=== PATIENT | male | born 1945 | race Caucasian/White ===

== ENCOUNTER 2022-03-17 07:45 | Inpatient (IN) | payer OTHER ==
[~2022-03-17] VITALS: Ht 177.8 cm; Wt 73.5 kg
[2022-03-17 08:05] VITALS: BP_SYST 147
[2022-03-17] MEDS ORDERED: METOCLOPRAMIDE HCL 10 MG/2 ML VIAL IVP ONE (08:45)
[2022-03-17] MEDS ORDERED: MECLIZINE HCL 25 MG TABLET (ANITVERT) PO ONE (08:45)
[2022-03-17 09:24] LABS: BASOPHILS % (AUTO) 0.9 % (0.0-2.0); EOSINOPHILS % (AUTO) 0.1 % (0.0-4.0); LYMPHOCYTES # (AUTO) 0.3 K/uL (1.0-5.5); LYMPHOCYTES % (AUTO) 9.9 % (20.5-51.5); MEAN CORPUSCULAR HEMOGLOBIN 33 pg (27-31); MEAN CORPUSCULAR HGB CONC 35 % (32-36); MEAN CORPUSCULAR VOLUME 93 fL (79.0-98.0); MONOCYTES # (AUTO) 0.4 K/uL (0.0-1.0); MONOCYTES % (AUTO) 10.7 % (1.7-9.3); NEUTROPHILS # (AUTO) 2.8 K/uL (1.8-7.7); NEUTROPHILS % (AUTO) 78.4 % (40.0-70.0); PLATELET COUNT (AUTO) 205 K/uL (130-430); RED BLOOD CELL COUNT(AUTO) 3.98 MIL/uL (4.2-6.2); RED CELL DISTRIBUTION WIDTH 12.7 % (9.0-15.0); WHITE BLOOD COUNT (AUTO) 3.5 K/uL (4.8-10.8)
[2022-03-17 10:05] LABS: ANION GAP 6 (5-15); CALCIUM 8.5 mg/dL (8.4-11.0); CREATININE 0.83 mg/dL (0.55-1.30); GLUCOSE 113 mg/dL (70-99); POTASSIUM 4.2 mmol/L (3.5-5.1); UREA NITROGEN, BLOOD 7 mg/dL (8-21)
[2022-03-17 10:14] LABS: ALANINE AMINOTRANSFERASE 25 U/L (12-78); ALBUMIN 3.7 g/dL (3.4-4.8); ASPARTATE AMINOTRANSFERASE 21 U/L (10-37); TOTAL BILIRUBIN 0.8 mg/dL (0.0-1.0)
[2022-03-17 10:15] LABS: CHLORIDE 82 mmol/L (98-107); SODIUM SERUM 113 mmol/L (136-145)
[2022-03-17] MEDS ORDERED: NACL 0.9% 1,000 ML IV ONE (10:15)
--- NOTE | 2022-03-17 10:20 | NUR ---
Patient to ER bed 4 to gown for evaluation. Side rails up. Report given to JAVON BOSS.
--- NOTE | 2022-03-17 12:11 | NUR ---
PT RESTING COMFORTABLY. NO DISTRESS NOTED. IVF COMPLETED. RESP EVEN AND UNLABORED. NO N/V NOTED. VSS. DENIES ANY NEEDS. AWAITING RE EVAL, WILL CONT TO MONITOR
--- NOTE | 2022-03-17 14:35 | NUR ---
PT RESTING COMFORTABLY. NO DISTRESS NOTED. RESP EVEN AND UNLABORED. VSS. AWAITING BED. WILL CONT TO MONITOR
[2022-03-17] MEDS ORDERED: SODIUM CHLORIDE 3% *HI-ALERT* 500 ML IV ONE (17:00)
--- NOTE | 2022-03-17 17:20 | NUR ---
CALL OUT TO ADMITTING LIZ CLARIFY ORDER FOR 3% NS, AWAITING CALL BACK
--- NOTE | 2022-03-17 17:39 | NUR ---
SPOKE WITH Domingo OJEDA REGARDING 3% ORDER/CLARITY. PER MD, WILL WAIT RESULTS OF 1700 LAB DRAW THAT IS STILL PENDING AT THIS TIME. WILL CALL MD BACK ONCE CHEMISTRY IS RESULTED. HOLD 3% NS AT THIS TIME PER
[2022-03-17 18:14] LABS: ANION GAP 13 (5-15); CALCIUM 8.7 mg/dL (8.4-11.0); CREATININE 0.77 mg/dL (0.55-1.30); GLUCOSE 102 mg/dL (70-99); POTASSIUM 3.7 mmol/L (3.5-5.1); UREA NITROGEN, BLOOD 7 mg/dL (8-21)
--- NOTE | 2022-03-17 18:15 | NUR ---
Critical lab results called from [facility]: sodium 115, chloride 83.
[2022-03-17 18:28] LABS: CHLORIDE 83 mmol/L (98-107); SODIUM SERUM 115 mmol/L (136-145)
[2022-03-17 18:35] LABS: THYROID STIMULATING HORMONE 1.27 uIu/mL (0.34-4.82)
--- NOTE | 2022-03-17 19:07 | NUR ---
REPEAT CHEM PANEL RESULTED. CALL OUT TO Domingo OJEDA FOR 3%NS RATE/ORDERS
--- NOTE | 2022-03-17 19:52 | NUR ---
Received pt up in bed in stable condition. Ambulatory to restroom. Denies any pain/discomfort. VSS.
--- NOTE | 2022-03-17 19:56 | NUR ---
Admit bed requested Patient will be admitted to care of . Admitted to tele unit. Diagnosis hyponatremia Inpatient (Yes or No) y Observation (Yes or No) n Orientation concerns or request close to nursing station (Yes or No) n Covid Status pending On vent or bipap n Isolation requirements n Needs a sitter n From Home (Yes or if No enter name of facility) y Requires Dialysis (Yes or No) n Med Rec Completed (Yes of No) n
--- NOTE | 2022-03-17 20:07 | NUR ---
Pending return call from MD Izaguirre regarding Na level of 115 for further IVF orders/rate.
--- NOTE | 2022-03-17 20:23 | NUR ---
Received order from MD Izaguirre to D/C 3% Hypertonic amanda. and start pt on NS @ 75 ml/hr. Noted.
[2022-03-17] MEDS: NACL 0.9% 1,000 ML IV SCH (21:11)
--- NOTE | 2022-03-17 21:15 | NUR ---
Pt made aware of Covid + status.
--- NOTE | 2022-03-17 23:18 | NUR ---
Patient will be admitted to care of Dr. Stanley. Admitted to TELE unit, room 115A. Complete and up to date summary report printed. SBAR report given at bedside to KARYN Morris with opportunity for questions.
--- NOTE | 2022-03-17 23:25 | NUR ---
ADMISSION NOTE Received patient from ER via gurney. Patient admitted with diagnosis of hyponatremia. Patient is awake, alert, oriented X 4. Patient oriented to hospital room, call light, toileting, pain management and safety-teach back done. Patient informed that their room number is 115A. Personal belongings checked and Belongings List documented. Call light within reach.
[2022-03-17 23:41] VITALS: BP_SYST 149
[2022-03-17] MEDS ORDERED: TAMS-11 PO (23:51)
[2022-03-17] MEDS ORDERED: FINA5TAB3 PO (23:51)
[2022-03-17] MEDS ORDERED: METO25TA3 PO (23:51)
--- NOTE | 2022-03-18 | NUR ---
received report on patient from KARYN Morris, assumed care, and [facility]..
[2022-03-18 01:27] LABS: ANION GAP 9 (5-15); CALCIUM 8.1 mg/dL (8.4-11.0); CHLORIDE 87 mmol/L (98-107); CREATININE 0.79 mg/dL (0.55-1.30); GLUCOSE 104 mg/dL (70-99); POTASSIUM 3.7 mmol/L (3.5-5.1); UREA NITROGEN, BLOOD 7 mg/dL (8-21)
[2022-03-18 01:37] LABS: SODIUM SERUM 118 mmol/L (136-145)
--- NOTE | 2022-03-18 05:12 | NUR ---
Consultation Paged Reason for Consultation: Hyponatremia Was consult called: Y Person who was notified: Anna Consulting Physician: Simone Carney (Lars Herman is alteration inspector) Ordering Physician: Dr. Stanley
--- NOTE | 2022-03-18 07:35 | NUR ---
report given to day rn and care was turned over to her.
[2022-03-18 07:45] VITALS: BP_SYST 144
--- NOTE | 2022-03-18 07:45 | NUR ---
OPEN NOTE Patient in bed resting. A/Ox 4 [place] islander speaking. No pain, no sob, no distress noted at this time. IV to LFA 20G patent and on infusion pump. Patient is in isolation due to being covid positive. Patient able to ambulate to restroom and is oriented to room. Call light is within reach and all needs met at this time. Will continue to monitor.
[2022-03-18 08:17] LABS: ANION GAP 11 (5-15); CALCIUM 8.2 mg/dL (8.4-11.0); CHLORIDE 89 mmol/L (98-107); CREATININE 0.75 mg/dL (0.55-1.30); GLUCOSE 96 mg/dL (70-99); POTASSIUM 3.6 mmol/L (3.5-5.1); SODIUM SERUM 121 mmol/L (136-145); UREA NITROGEN, BLOOD 7 mg/dL (8-21)
[2022-03-18] MEDS: NACL 0.9% 1,000 ML IV SCH (09:50)
[2022-03-18] MEDS ORDERED: FUROSEMIDE 20 MG/2 ML VIAL IVP ONE (11:30)
[2022-03-18 12:00] VITALS: BP_SYST 146
[2022-03-18] MEDS ORDERED: SODIUM CHLORIDE 3% *HI-ALERT* 500 ML IV SCH (12:00)
--- NOTE | 2022-03-18 12:12 | NUR ---
PATIENT ROUNDS Patient in bed resting. No pain, no sob, no distress noted at this time. IV to LFA 20G patent and on infusion pump. Patient is in isolation due to being covid positive. Patient able to ambulate to restroom and is oriented to room. Call light is within reach and all needs met at this time. Bed is locked in lowest postion. Will continue to monitor.
[2022-03-18 16:00] VITALS: BP_SYST 145
--- NOTE | 2022-03-18 16:10 | NUR ---
PATIENT ROUNDS Patient in bed resting. No pain, no sob, no distress noted at this time. IV to LFA 20G patent and on infusion pump. Patient is in isolation due to being covid positive. Patient able to ambulate to restroom and is oriented to room. Call light is within reach and all needs met at this time. Bed is locked in lowest position. Will continue to monitor.
--- NOTE | 2022-03-18 18:53 | NUR ---
CLOSING NOTE Patient in bed resting. A/Ox 4 kosovan speaking. No pain, no sob, no distress noted at this time. IV to LFA 20G patent and on infusion pump. Patient is in isolation due to being covid positive. Patient able to ambulate to restroom and is oriented to room. Call light is within reach and all needs met at this time. Bed is locked and in lowest position Will endorse to weight shifter nurse.
--- NOTE | 2022-03-18 19:30 | NUR ---
INITIAL NOTE AT INITIAL ASSESSMENT, PATIENT IS RESTING IN BED, STABLE, NO SIGNS OF RESPIRATORY DISTRESS. PATIENT VERBALIZES NO PAIN, OR SOB. PLAN OF CARE FOR THE EVENING IS COMMUNICATED WITH THE PATIENT. CALL LIGHT TEACH BACK IS SUCCESSFUL AT THIS TIME. BED IS LOCKED, ALARMED, AND AT THE LOWEST LEVEL. FALL, SAFETY, RESPIRATORY, AND COVID ISOLATION PRECAUTIONS WILL IN PLACE THROUGHOUT THE SHIFT.
[2022-03-18 19:45] VITALS: BP_SYST 147
[2022-03-18 20:49] LABS: ANION GAP 8 (5-15); CALCIUM 8.6 mg/dL (8.4-11.0); CHLORIDE 96 mmol/L (98-107); CREATININE 0.92 mg/dL (0.55-1.30); GLUCOSE 133 mg/dL (70-99); POTASSIUM 3.4 mmol/L (3.5-5.1); SODIUM SERUM 129 mmol/L (136-145); UREA NITROGEN, BLOOD 11 mg/dL (8-21)
--- NOTE | 2022-03-18 23:45 | NUR ---
ROUND PATIENT IS RESTING IN BED,STABLE, NO SIGNS OF RESPIRATORY DISTRESS. CALL LIGHT IS WITHIN REACH. BED IS LOCKED AND AT THE LOWEST LEVEL.
[2022-03-19] VITALS: BP_SYST 145
--- NOTE | 2022-03-19 03:45 | NUR ---
ROUNDS PATIENT IS RESTING IN BED, HE SAYS HE HAS TROUBLE STAYING ASLEEP WHEN HE IS NOT HOME. HE IS STABLE, NO SIGNS OF RESPIRATORY DISTRESS.
[2022-03-19] MEDS: NACL 0.9% 1,000 ML IV SCH ×2 (04:05→11:55)
--- NOTE | 2022-03-19 06:52 | NUR ---
CLOSING NOTE PATIENT HAD NO RESPIRATORY EVENTS DURING THE NIGHT, HE REMAINED STABLE. AT THIS TIME, HE IS RESTING IN BED, STABLE, NO SIGNS OF RESPIRATORY DISTRESS. CALL LIGHT PLACED WITHIN REACH. BED IS LOCKED AND AT THE LOWEST LEVEL. FALL, SAFETY, RESPIRATORY, AND COVID ISOLATION PRECAUTIONS HAVE BEEN IN PLACE THROUGHOUT THE SHIFT. WILL CONTINUE TO MONITOR UNTIL SHIFT REPORT IS GIVEN AT BEDSIDE TO AM NURSE.
[2022-03-19 07:45] VITALS: BP_SYST 155
--- NOTE | 2022-03-19 08:02 | NUR ---
OPEN NOTE Patient in bed resting. A/Ox 4 cypriot speaking. No pain, no sob, no distress noted at this time. IV to LFA 20G patent and on infusion pump. Patient is in isolation due to being covid positive. Patient able to ambulate to restroom and is oriented to room. Call light is within reach and all needs met at this time. Will continue to monitor.
[2022-03-19 08:16] LABS: ANION GAP 11 (5-15); CALCIUM 8.4 mg/dL (8.4-11.0); CHLORIDE 98 mmol/L (98-107); CREATININE 0.82 mg/dL (0.55-1.30); GLUCOSE 99 mg/dL (70-99); POTASSIUM 3.6 mmol/L (3.5-5.1); SODIUM SERUM 131 mmol/L (136-145); UREA NITROGEN, BLOOD 9 mg/dL (8-21)
[2022-03-19 12:10] VITALS: BP_SYST 140
[2022-03-19] MEDS: D5W 1,000 ML IV SCH (12:52)
[2022-03-19 16:00] VITALS: BP_SYST 153
--- NOTE | 2022-03-19 16:00 | NUR ---
PATIENT ROUNDS Patient in bed resting. No pain, no sob, no distress noted at this time. IV to LFA 20G patent and on infusion pump. Patient is in isolation due to being covid positive. Patient able to ambulate to restroom and is oriented to room. Paged Dr Izaguirre regarding reconciliation of medications, awaiting a call back. Call light is within reach and all needs met at this time. Bed is locked in lowest postion. Will continue to monitor.
[2022-03-19] MEDS ORDERED: TAMSULOSIN HCL 0.4 MG CAP PO ONE ×2 (17:45)
[2022-03-19] MEDS ORDERED: METOPROLOL SUCCINATE 50 MG TAB.SR.24H (TOPROL XL) PO ONE (17:45)
[2022-03-19] MEDS ORDERED: FINASTERIDE 5 MG TABLET (PROSCAR) PO ONE (17:45)
--- NOTE | 2022-03-19 18:26 | NUR ---
Dietitian Recommendations * Liberalized Regular diet LP, MS, RD Please refer to Nutrition Assessment for details. Addendum: 03/19/22 at [address] Amended: Links added.
[2022-03-19 18:48] LABS: ANION GAP 10 (5-15); CALCIUM 8.9 mg/dL (8.4-11.0); CHLORIDE 94 mmol/L (98-107); CREATININE 0.88 mg/dL (0.55-1.30); GLUCOSE 112 mg/dL (70-99); POTASSIUM 3.6 mmol/L (3.5-5.1); SODIUM SERUM 127 mmol/L (136-145); UREA NITROGEN, BLOOD 8 mg/dL (8-21)
--- NOTE | 2022-03-19 18:51 | NUR ---
CLOSING NOTE Patient in bed resting. A/Ox 4 finnish speaking. No pain, no sob, no distress noted at this time. IV to LFA 20G patent and on infusion pump. Patient is in isolation due to being covid positive. Patient able to ambulate to restroom and is oriented to room. Call light is within reach and all needs met at this time. Bed is locked and in lowest position Will endorse to material handler 2nd shift nurse.
--- NOTE | 2022-03-19 19:15 | NUR ---
OPENING NOTES Patient resting in bed - no s/s pain or distress noted. Respirations even and unlabored - head of bed elevated. IV site patent - no s/s redness, infection, or infiltration. Bed locked and in lowest position. Call light within reach.
[2022-03-19 20:00] VITALS: BP_SYST 150
[2022-03-20 00:42] VITALS: BP_SYST 146
[2022-03-20] MEDS: D5W 1,000 ML IV SCH ×2 (00:53→08:41)
--- NOTE | 2022-03-20 07:30 | NUR ---
OPENING NOTE Patient sitting up at the side of the bed, no sign of distress and denies pain. Patient is anxious and wishes to be discharged home. Patient states that he "hasn't slept since wednesday" and doesnt feel comfortable sleeping in the hospital. Patient denies shortness of breath and nausea. IV is patent and running prescribed fluids. Patient updated on his plan of care. All needs met at this time and safety checks made.
--- NOTE | 2022-03-20 07:32 | NUR ---
CLOSING NOTES Patient resting in bed - no s/s pain or distress noted. Respirations even and unlabored - head of bed elevated. IV site patent - no s/s redness, infection, or infiltration. Bed locked and in lowest position. Call light within reach. Patient at approximately 0645 complains of slight headache. Informed patient that due to closeness to change of shift that I will endorse to dayshift nurse - headache complaint has been endorsed to change of shift.
[2022-03-20 08:00] VITALS: BP_SYST 149
[2022-03-20 08:50] LABS: ALANINE AMINOTRANSFERASE 27 U/L (12-78); ALBUMIN 3.5 g/dL (3.4-4.8); ANION GAP 12 (5-15); ASPARTATE AMINOTRANSFERASE 27 U/L (10-37); CALCIUM 8.8 mg/dL (8.4-11.0); CHLORIDE 86 mmol/L (98-107); CREATININE 0.71 mg/dL (0.55-1.30); GLUCOSE 119 mg/dL (70-99); POTASSIUM 3.3 mmol/L (3.5-5.1); SODIUM SERUM 120 mmol/L (136-145); TOTAL BILIRUBIN 0.8 mg/dL (0.0-1.0); UREA NITROGEN, BLOOD 4 mg/dL (8-21)
--- NOTE | 2022-03-20 10:29 | NUR ---
CONSULTATION PAGED/CALLED Reason for Consultation: [] COVID Person Who was Notified: [] KAYLA Consulting Physician: [] DR ARANGO [employer] Specialty: [] PULMO Ordering Physician: [] DR COLLADO
[2022-03-20] MEDS ORDERED: POTASSIUM CHLORIDE 20 MEQ TAB.PRT.SR PO ONE (11:00)
[2022-03-20 11:06] VITALS: BP_SYST 149
[2022-03-20 12:00] VITALS: BP_SYST 151
[2022-03-20] MEDS: NACL 0.9% 1,000 ML IV SCH (13:14)
--- NOTE | 2022-03-20 14:09 | NUR ---
HIGH ALERT NOTE: Spoke with Dr. Izaguirre in person and received one time order for Ativan 0.5mg.
--- NOTE | 2022-03-20 14:10 | NUR ---
ROUNDS Patient is sitting up at the side of the bed, no complaints of pain or distress. Patient is very anxious and wishes to go home. Dr Izaguirre spent time with the patient this morning and explained why the patient was unable to be discharged today and patient agreed with the plan of care. Comfort measures provided to the patient. All needs met at this time and safety checks made.
[2022-03-20] MEDS ORDERED: LORazepam 1 MG TABLET PO ONE (14:15)
[2022-03-20 16:00] VITALS: BP_SYST 141
[2022-03-20] MEDS ORDERED: METOPROLOL SUCCINATE 50 MG TAB.SR.24H (TOPROL XL) PO SCH (17:00)
[2022-03-20] MEDS ORDERED: TAMSULOSIN HCL 0.4 MG CAP PO SCH (17:00)
[2022-03-20] MEDS ORDERED: FINASTERIDE 5 MG TABLET (PROSCAR) PO SCH (17:00)
--- NOTE | 2022-03-20 19:12 | NUR ---
CLOSING NOTE Patient resting in bed, no sign of distress and denies pain. Patient has been much more relaxes and has been able to get some sleep after receiving the ativan. Patient is up to date on his plan of care, verbalized understanding. All needs met at this time and safety checks made. Endorsed to rn shift mgr nurse.
[2022-03-21] MEDS: NACL 0.9% 1,000 ML IV SCH (00:32)
[2022-03-21 00:33] VITALS: BP_SYST 147
[2022-03-21 04:08] VITALS: BP_SYST 149
[2022-03-21 08:00] VITALS: BP_SYST 146
--- NOTE | 2022-03-21 08:00 | NUR ---
Initial notes alert, ambulatory. denies any pain or shortness of breath. ivf infusing well. Patients wants to go home. on room air, No distress. Call light within reach.
[2022-03-21 08:08] LABS: ANION GAP 10 (5-15); CALCIUM 8.9 mg/dL (8.4-11.0); CHLORIDE 91 mmol/L (98-107); GLUCOSE 112 mg/dL (70-99); POTASSIUM 3.8 mmol/L (3.5-5.1); SODIUM SERUM 124 mmol/L (136-145); UREA NITROGEN, BLOOD 6 mg/dL (8-21)
[2022-03-21 11:36] VITALS: BP_SYST 140
[2022-03-21 12:24] VITALS: BP_SYST 140
--- NOTE | 2022-03-21 13:59 | NUR ---
Discharge home, denies any pain or shortness of breath. Ambulate with steady gait. discharge instruction, medication and follow up care discussed with patient. Verbalize understanding. IVL and arm band removed.
== END 2022-03-21 13:50 | disposition home or self-care (01) | DRG 640 ==
LOC: SED 07:45 → STU 16:45
PROVIDERS: ADMIT Specialist; ATTEND Specialist
DX: E87.1 Hypo-osmolality and hyponatremia (principal); U07.1 COVID-19; K52.9 Noninfective gastroenteritis and colitis, unspecified; R63.1 Polydipsia; N40.0 Benign prostatic hyperplasia without lower urinary tract symptoms; R09.02 Hypoxemia
CPT/HCPCS: 36415; 70450-TC; 71045; 76376; 80048; 80053; 82533; 83735; 83935; 84443; 84484; 85025; 93005; 96360; 99285; G0378; J1940; J3490